=== PATIENT | male | born 1970 | race Asian ===

== ENCOUNTER 2020-03-11 09:16 | Outpatient (CLI) | payer OTHER ==
--- NOTE | 2020-03-11 11:47 | MRI Report ---
PROCEDURE: Arthrogram Shoulder RT INDICATIONS: RT SHOULDER PAIN CONTRAST: Intraarticular gadolinium. TECHNIQUE: After the administration of 12 mL of dilute intra-articular Gadolinium contrast, oblique coronal T1 a nd T2 spin echo with fat saturation, oblique sagittal T1 spin echo with and without fat saturation, o blique sagittal T2 fast spin echo with fat saturation, axial T1 spin echo with fat saturation through the shoulder. COMPARISON: None. FINDINGS: Image quality: Degraded by uncontrollable motion artifact. Rotator cuff: Infraspinatus tendinopathy and thickening with low-grade bursal surface fraying. Supraspinatus tendin opathy with low-grade bursal surface fraying. Teres minor appears intact. Subscapularis tendon grossl y intact although poorly evaluated due to motion artifact. No definite atrophy of the rotator cuff mu scles. Bones and bursae: No bone marrow contusions or fractures. Moderate hypertrophic acromioclavicular joint degeneration. The acromion demonstrates conventional anatomy, without an os acromiale. Trace subacromial/subdeltoid bursal fluid is present. Capsule and soft tissues: Labrum: Chronic appearing posterior labral tear with associated paralabral cyst with inferior extensi on measuring up to 4 mm on image 3/501. There is adjacent sclerosis and degeneration in the glenoid Superior labral tear which could be chronic/degenerative. There is also thickening and irregularity of the inferior glenohumeral ligament in particular the hum eral attachment. The long head of the biceps tendon demonstrates normal location and morphology. The rotator interval appears normal, without fibrosis. The coracohumeral ligament is normal in thickness. IMPRESSION: Infraspinatus tendinopathy and thickening with low-grade bursal surface fraying Supraspinatus tendinopathy with mild bursal surface fraying Trace subacromial-subdeltoid bursitis Chronic appearing posterior labral tear with associated paralabral cyst. Superior labral tear which could be chronic/degenerative. Sprain versus partial rupture of the humeral attachment of the inferior glenohumeral ligament. Motion degraded examination Reviewed by: Eloy Rankin MD on 03/11/2020 11:46 AM PDT Approved by: Eloy Rankin MD on 03/11/2020 11:46 AM PDT Station ID: [id number]
--- NOTE | 2020-03-11 11:55 | XRAY Report ---
Reason: RT SHOULDER PAIN Procedure Date: 03/11/2020 Accession Number: [id number] / [id number] Procedure: [place] - Arthrogram Needle Placement CPT Code: Final Report FULL RESULT: PROCEDURE: Arthrogram Needle Placement INDICATIONS: RT SHOULDER PAIN CONTRAST: CONTRAST: GADAVIST/ OMNI FLUORO TIME: FLUORO TIME: 0.22 MIN and NUMBER IMAGES: 3 TECHNIQUE: The indications, alternatives, benefits, risks, and complications of the procedure were explained to the patient. Written informed consent was obtained and placed in the chart. The shoulder was examined fluoroscopically and a site for needle placement chosen for entry into the glenohumeral joint from an anterior approach. The skin was prepped and draped in the usual fashion, and 1% lidocaine infiltrated from skin down to joint capsule. A spinal needle was inserted into the glenohumeral joint, and a small amount of iodinated contrast media injected to confirm intra-articular placement of the needle tip. This was followed by approximately 12 ml of saline/gadolinium (20cc normal saline/0.2 gadolinium) contrast solution. The needle was removed and a dressing was applied. The patient was given postprocedural instructions and sent to the MRI suite for imaging. FINDINGS: A single fluoroscopic spot image demonstrates intra-articular location of injected iodinated contrast. IMPRESSION: Successful fluoroscopically guided administration of iodinated contrast solution into the shoulder joint for MR arthrogram. Reviewed by: Eloy Rankin MD on 03/11/2020 11:54 AM PDT Approved by: Eloy Rankin MD on 03/11/2020 11:54 AM PDT Station ID: [id number]
== END 2020-03-11 09:17 | disposition home or self-care (01) ==
LOC: DI 09:16
DX: S43.491A Other sprain of right shoulder joint, initial encounter (principal); M75.81 Other shoulder lesions, right shoulder; M75.51 Bursitis of right shoulder
CPT/HCPCS: 23350; 73222; 77002; A9585